=== PATIENT | female | born 2000 | race Caucasian/White ===

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

== ENCOUNTER 2021-11-12 23:12 | Emergency (ER) | payer MEDICAID, OTHER ==
[~2021-11-12] VITALS: Ht 149.9 cm; Wt 69.4 kg
[2021-11-12 23:27] LABS: BASOPHILS % (AUTO) 0.3 % (0.0-5.0); EOSINOPHILS % (AUTO) 1.7 % (0.0-8.0); HEMATOCRIT 33.1 % (36-48); LYMPHOCYTES % (AUTO) 15.9 % (21.0-51.0); MEAN CORPUSCULAR HEMOGLOBIN 29.1 pg (27.0-33.0); MEAN CORPUSCULAR HGB CONC 35.3 g/dL (32.0-36.0); MEAN CORPUSCULAR VOLUME 82.3 fL (79-99); MONOCYTES % (AUTO) 3.7 % (3.0-13.0); NEUTROPHILS % (AUTO) 77.8 % (40.0-77.0); PLATELET COUNT (AUTO) 256 K/uL (130-400); RED BLOOD CELL COUNT(AUTO) 4.02 MIL/uL (4.00-5.50); RED CELL DISTRIBUTION WIDTH 13.2 % (11.0-15.5); WHITE BLOOD COUNT (AUTO) 14.4 K/uL (4.8-10.8)
[2021-11-12 23:37] LABS: APPEARANCE,URINE CLEAR (CLEAR); BILIRUBIN,URINE NEGATIVE (NEGATIVE); COLOR,URINE LIGHT-YELLOW (YELLOW); GLUCOSE, URINE (UA) NEGATIVE (NEGATIVE); KETONES,URINE 20 mg/dL (NEGATIVE); LEUKOCYTE ESTERASE ,URINE 75 Leu/uL (NEGATIVE); NITRATE,URINE NEGATIVE (NEGATIVE); OCCULT BLOOD,URINE MODERATE (NEGATIVE); PH,URINE 6.5 (5.0-8.0); PROTEIN,URINE 10 mg/dL (NEGATIVE); UROBILINOGEN,URINE 0.2 mg/dL (0.2-1.0)
[2021-11-12 23:41] LABS: BACTERIA,URINE RARE /HPF (None Seen); CALCIUM OXALATE CRYSTALS,UR RARE /LPF (None Seen); MUCUS,URINE RARE LPF (None Seen); RBC,URINE 51-100 /HPF (0-1); SQUAMOUS EPITHELIAL CELL,UR MOD /HPF (0-2)
[2021-11-12 23:43] LABS: CREATININE 0.6 mg/dL (0.5-1.5); POTASSIUM 3.4 mmol/L (3.5-5.1)
[2021-11-12 23:47] LABS: ALBUMIN 3.1 g/dL (3.5-5.0); TOTAL PROTEIN, SERUM 7.2 g/dL (6.0-8.3)
[2021-11-13 00:56] VITALS: BP 108/54
[2021-11-13] MEDS ORDERED: NITROFURANTOIN MONOHYD/M-CRYST 100 MG CAPSULE PO ONE ×2 (01:00)
[2021-11-13] MEDS ORDERED: MACR100 PO (01:01)
== END 2021-11-13 01:15 | disposition home or self-care (01) ==
LOC: EDH 23:12
DX: O23.42 Unspecified infection of urinary tract in pregnancy, second trimester (principal); N39.0 Urinary tract infection, site not specified; Z90.49 Acquired absence of other specified parts of digestive tract; Z3A.18 18 weeks gestation of pregnancy
CPT/HCPCS: 36415; 76805; 80053; 81001; 83690; 85025; 86900; 86901; 87088

== ENCOUNTER 2023-12-13 14:44 | Emergency (ER) | payer MEDICAID ==
[~2023-12-13] VITALS: Ht 149.9 cm; Wt 82.6 kg
[~2023-12-13 14:44] MED LIST: MACR100 PO
--- NOTE | 2023-12-13 15:13 | ERN ---
ED Note History of Present Illness Stated Complaint: SOB X 10 DAYS Chief Complaint: Adult-Asthma Time Seen by MD: 15:04 Dictation: 23-year-old female presents to the ED for evaluation of shortness a breath onset 1 week ago. Patient reports history of bronchitis. EMS states patient was satting 92% on room air upon arrival they administered O2 with albuterol treatment which increased oxygen to 97%. As per EMS patient was seen about [facility] for similar symptoms. Patient denies any history of asthma. Allergies: Coded Allergies: No Known Drug Allergies (Unverified Allergy, Unknown, 11/12/21) Home Meds Active Scripts Nitrofurantoin/Nitrofuran Mac (Macrobid) 100 Mg Cap, 1 CAP PO BID for 7 Days, #14 CAP 0 Refills Prov:AMANDA PENA MD 11/13/21 Past Medical History Past Medical History: No Pertinent History Surgical History: Cholecystectomy Social History: Other LMP: Dec 08, 2023 : 3 Para: 3 Aborts: 0 Review of System Dictation Constitutional: Negative for fever,chills, and weight loss Eyes: Negative for injury, pain,redness, and discharge ENT: Negative for injury,pain or swelling Cardiovascular: Negative for chest pain, palpitations, and edema Respiratory: Positive shortness of breath, negative for cough, and wheezing, Abdomen/GI: Negative for abdominal pain, nausea, vomiting, diarrhea, and constipation Back: Negative for injury and pain : Negative for injury, bleeding and discharge MS/Extremity: Negative for injury and deformity Skin: Negative for rash, and discoloration Neuro: Negative for headache, weakness, numbness, tingling, and seizure Psych: Negative for suicide ideation, homicidal ideation, and hallucinations Initial Vital Sign VS Vital Signs Date Time Temp Pulse Resp B/P (MAP) Pulse Ox O2 Delivery O2 Flow Rate FiO2 12/13/23 14:55 98.2 98 22 116/91 92 Room Air* 0 21 Physical Exam Dictation General: awake, alert Head/Face: Normocephalic, atraumatic Eyes: PERRL, EOMI, vision at baseline ENT: oral cavity clear, TMs clear, no signs of infection Neck: Trachea midline, supple, no nuchal rigidity Cardiovascular: RRR, normal S1/S2, No MRGs, no JVD Respiratory: moderate respiratory distress, wheezing, diminished bilateral breath sounds Abdomen: Soft, non-tender, non-distended, normal bowel sounds, no guarding or rebound. Skin: Warm, dry, normal turgor, no rash MS/Extremity: Pulses equal, no cyanosis, neurovascular intact, FROM Neuro: COAx4, GCS 15, strength 5/5, CN 2-12 intact, normal cerebellar exam, normal gait, Psych: Normal behavior, mood, and affect normal Results (Laboratory/Radiology) Laboratory/Radiology Laboratory Tests Test 12/13/23 15:13 12/13/23 15:19 Influenza Type A Antigen Negative For Type A Influenza Type B Antigen Negative For Type B SARS-CoV-2, RNA, NAAT NEGATIVE SARS CoV-2 White Blood Count 14.0 K/uL (4.8-10.8) H Red Blood Count 4.82 MIL/uL (4.00-5.50) Hemoglobin 13.6 g/dL (12.0-16.0) Hematocrit 40.1 % (36-48) Mean Corpuscular Volume 83.2 fL (79-99) Mean Corpuscular Hemoglobin 28.2 pg (27.0-33.0) Mean Corpuscular Hemoglobin Concent 33.9 g/dL (32.0-36.0) Red Cell Distribution Width 14.9 % (11.0-15.5) Platelet Count 345 K/uL (130-400) Mean Platelet Volume 10.7 fL (7.5-10.5) H Immature Granulocyte % (Auto) 0.7 % (0-1) Neutrophils (%) (Auto) 58.9 % (40.0-77.0) Lymphocytes (%) (Auto) 30.2 % (21.0-51.0) Monocytes (%) (Auto) 4.9 % (3.0-13.0) Eosinophils (%) (Auto) 4.7 % (0.0-8.0) Basophils (%) (Auto) 0.6 % (0.0-5.0) Neutrophils # (Auto) 8.2 K/uL (1.8-7.7) H Lymphocytes # (Auto) 4.2 K/uL (1.0-4.8) Monocytes # (Auto) 0.7 K/uL (0.1-1.0) Eosinophils # (Auto) 0.65 K/uL (0.00-0.70) Basophils # (Auto) 0.08 K/uL (0.00-0.20) Absolute Immature Granulocyte (auto 0.10 K/uL (0-1) Nucleated Red Blood Cells 0.0 % (0.0-0.19) Sodium Level 136 mmol/L (136-145) Potassium Level 3.7 mmol/L (3.5-5.1) Chloride Level 100 mmol/L (101-111) L Carbon Dioxide Level 28 mmol/L (21-32) Blood Urea Nitrogen 15 mg/dL (7-18) Creatinine 0.9 mg/dL (0.5-1.0) Glomerular Filtration Rate Calc 91 mL/min (>90) Random Glucose 99 mg/dL (70-105) Lactic Acid Level 1.8 mmol/L (0.8-2.5) Total Calcium 9.3 mg/dL (8.5-10.1) Troponin I High Sensitivity < 4 ng/L (4-50) L Serum Test, Qualitative NEGATIVE (NEGATIVE) Labs Reviewed?: Yes X-RAY Comment: X-ray independently visualized by me REASON: SOB, WHEEZING TO ALL LOBES ORDERING PHYSICIAN: LAURO TALLEY PROCEDURE: CXR1VW - CHEST 1VW CHEST 1VW HISTORY: Shortness of breath COMPARISON: None FINDINGS: A frontal projection of the chest was obtained. No acute pulmonary infiltrates is seen. The heart is normal in size. Prominent interstitial markings are seen. No evidence of aortic calcification is seen. IMPRESSION: 1. No acute pulmonary infiltrate is seen. DICTATED BY: TERRY HUFFMAN MD DATE: 12/13/23 1516 ED Course ED Course Orders Procedure Category Date Status Time Vital Signs Per CPOE 12/13/23 Transmitted Routine 14:57 Pulse Ox(Continuous) RT 12/13/23 Transmitted 14:57 Oxygen By Nc/Pulse Ox CPOE 12/13/23 Transmitted 14:57 Saline Lock Iv CPOE 12/13/23 Transmitted 14:57 Chest 1vw RAD 12/13/23 Resulted 14:57 Ipratropium/Albuterol PHA 12/13/23 Complete Neb (Duoneb) 15:00 Cbc W Manual Diff LAB 12/13/23 Logged 14:57 Basic Metabolic Panel LAB 12/13/23 Complete 14:57 Blood Cult MARYANN 12/13/23 In Process 14:57 Lactic Acid LAB 12/13/23 Complete 14:57 Cbc With Differential LAB 12/13/23 Complete 15:00 Testing, LAB 12/13/23 Complete Serum Hcg 15:00 Covid Rna Naat LAB 12/13/23 Complete 15:00 Influenza Type A & B, LAB 12/13/23 Complete Rapid 15:00 Troponin I High LAB 12/13/23 Complete Sensitivity 15:00 Magnesium 2gm Premix PHA 12/13/23 Complete 50ml (Magnesium 2gm 15:04 Methylprednisolone PHA 12/13/23 Complete Succ 125mg (Solu-Medr 15:30 0.9%Nacl 1000ml (Ns PHA 12/13/23 Complete 1000ml) 15:30 Ipratropium/Albuterol PHA 12/13/23 Complete Neb (Duoneb) 17:30 Current Medications Medications (Trade) Dose Ordered Sig/Bethany Route PRN Reason Start Time Stop Time Status Last Admin Dose Admin Albuterol (DUOneb) 1 UDVIAL ONCE ONCE IH 12/13/23 15:00 12/13/23 15:01 DC 12/13/23 15:16 Albuterol (DUOneb) 1 UDVIAL ONCE ONCE IH 12/13/23 17:30 12/13/23 17:31 DC 12/13/23 18:36 Magnesium Sulfate 50 ml @ 0 mls/hr PROTOCOL STAT IV 12/13/23 15:04 12/13/23 15:06 DC 12/13/23 15:21 Methylprednisolone Sodium Succinate (Solu-medROL 125MG) 125 mg ONCE ONCE IVP 12/13/23 15:30 12/13/23 15:31 DC 12/13/23 15:30 Sodium Chloride 1,000 ml @ 0 mls/hr ONCE ONCE IV 12/13/23 15:30 12/13/23 15:31 DC 12/13/23 15:20 Vital Signs Date Time Temp Pulse Resp B/P (MAP) Pulse Ox O2 Delivery O2 Flow Rate FiO2 12/13/23 18:37 81 22 12/13/23 16:59 78 18 96 Room Air* 0 21 12/13/23 15:16 89 24 12/13/23 14:55 98.2 98 22 116/91 92 Room Air* 0 21 Medical Decision Making MDM MDM: Differential diagnosis: Shortness a breath, bronchitis, asthma 1750-patient is feeling better and is requesting to go home, will order another nebulizer treatment before discharging. Previous outside records reviewed: Old ER visits. Need for emergency major/minor surgery: No Patient's prior external medical records from other ER visits were reviewed by me as indicated. Prior testing and results from previous visits were reviewed. Prior tests were taken into account with medical decision making and resource utilization, independent historian/historians were used to obtain complete medical history. I independently interpreted the test that were performed, results were reviewed by me and considered findings on radiology if ordered. Medical management and examination interpretation discussions were had by me with other qualified healthcare professionals as indicated for the patient's care. Patient offered admission seven some difficulty breathing however patient refused and wants to go home instead repeat vital signs are stable symptoms have improved minimal wheezing now however patient does have cough and still feels a little short of breath. Advised to return if worse in any way and agrees with current treatment plan prescriptions given. DX & DISP Disposition: Discharge Departure Impression: Primary Impression: Acute bronchitis with wheezing Condition: Stable Scripts Albuterol Sulfate (Ventolin Hfa/Proventil Hfa/Proair Hfa) 90 Mcg Puff 1-2 PUFF IH Q4H PRN for SHORTNESS OF BREATH for 5 Days, #1 INH 0 Refills PHARMACY TO DISPENSE 1 INHALER FOR USE Prov: THOMAS ROMERO MD 12/13/23 Azithromycin (Azithromycin) 250 Mg Tablet 250 MG PO AD for cough for 5 Days, #6 TAB Prov: THOMAS ROMERO MD 12/13/23 Referrals: SELF,REFERRAL (PCP) I have reviewed, & agreed with my scribe's, documentation. (Entered by Clarisa Frausto, acting as a scribe for Dr. Romero) I personally scribed for THOMAS ROMERO MD ([email or web address]) on 12/13/23 at 15:12. Electronically submitted by Clarias Frausto ([email or web address]). I personally scribed for THOMAS ROMERO MD ([email or web address]) on 12/13/23 at 18:07. Electronically submitted by Clarisa Frausto ([email or web address]). I personally scribed for THOMAS ROMERO MD ([email or web address]) on 12/13/23 at 18:54. Electronically submitted by Clarisa Frausto ([email or web address]). THOMAS ROMERO MD Dec 13, 2023 15:12
[2023-12-13 15:16] VITALS: PULSE 89; RESP 24
[2023-12-13] MEDS: IpraTROPium/alBUTERol SULFATE 3 ML SOLUTION IH ONE ×2 (15:16→18:36)
--- NOTE | 2023-12-13 15:18 | HMCIMG ---
CHEST 1VW HISTORY: Shortness of breath COMPARISON: None FINDINGS: A frontal projection of the chest was obtained. No acute pulmonary infiltrates is seen. The heart is normal in size. Prominent interstitial markings are seen. No evidence of aortic calcification is seen. IMPRESSION: 1. No acute pulmonary infiltrate is seen.
[2023-12-13] MEDS: 0.9%NACL 1000ML 1,000 ML IV ONE (15:20)
[2023-12-13] MEDS: MAGNESIUM 2GM PREMIX 50ML 50 ML IV STA (15:21)
[2023-12-13] MEDS: Solu-medROL 125MG VIAL IVP ONE (15:30)
[2023-12-13 15:35] LABS: BASOPHILS # (AUTO) 0.08 K/uL (0.00-0.20); BASOPHILS % (AUTO) 0.6 % (0.0-5.0); EOSINOPHILS # (AUTO) 0.65 K/uL (0.00-0.70); EOSINOPHILS % (AUTO) 4.7 % (0.0-8.0); HEMATOCRIT 40.1 % (36-48); LYMPHOCYTES # (AUTO) 4.2 K/uL (1.0-4.8); LYMPHOCYTES % (AUTO) 30.2 % (21.0-51.0); MEAN CORPUSCULAR HEMOGLOBIN 28.2 pg (27.0-33.0); MEAN CORPUSCULAR HGB CONC 33.9 g/dL (32.0-36.0); MEAN CORPUSCULAR VOLUME 83.2 fL (79-99); MONOCYTES # (AUTO) 0.7 K/uL (0.1-1.0); MONOCYTES % (AUTO) 4.9 % (3.0-13.0); NEUTROPHILS # (AUTO) 8.2 K/uL (1.8-7.7); NEUTROPHILS % (AUTO) 58.9 % (40.0-77.0); PLATELET COUNT (AUTO) 345 K/uL (130-400); RED BLOOD CELL COUNT(AUTO) 4.82 MIL/uL (4.00-5.50); RED CELL DISTRIBUTION WIDTH 14.9 % (11.0-15.5)
[2023-12-13 15:47] LABS: SARS-CoV-2, RNA, NAAT NEGATIVE SARS CoV-2 (NEGATIVE)
[2023-12-13 15:50] LABS: INFLUENZA TYPE A Negative For Type A (NEGATIVE); INFLUENZA TYPE B Negative For Type B (NEGATIVE)
[2023-12-13 15:52] LABS: CREATININE 0.9 mg/dL (0.5-1.0); POTASSIUM 3.7 mmol/L (3.5-5.1)
[2023-12-13 18:37] VITALS: PULSE 81; RESP 22
[2023-12-13] MEDS ORDERED: AZIT250T9 PO (19:06)
[2023-12-13] MEDS ORDERED: ALBUHFA IH (19:06)
[2023-12-13 19:30] VITALS: BP 124/88; PULSE 82; RESP 16; TEMP 98.2; O2SAT 97
== END 2023-12-13 19:37 | disposition home or self-care (01) ==
LOC: EDH 14:44
DX: J20.9 Acute bronchitis, unspecified (principal); Z20.822 Contact with and (suspected) exposure to COVID-19; Z90.49 Acquired absence of other specified parts of digestive tract
CPT/HCPCS: 99285; 96365; 71045; 87635; 96366; 96375; 84484; 80048; 84703; 85025; 87040; 87804 ×2; 83605; 36415; 94640; J3475; J7030; J2919

== ENCOUNTER 2024-04-15 14:00 | Emergency (ER) | payer MEDICAID ==
[~2024-04-15] VITALS: Ht 149.9 cm; Wt 83.5 kg
[~2024-04-15 14:00] MED LIST changes: +ALBUHFA IH; +AZIT250T9 PO
[2024-04-15 15:39] LABS: CREATININE 0.6 mg/dL (0.5-1.0); POTASSIUM 4.1 mmol/L (3.5-5.1)
[2024-04-15 15:44] LABS: BASOPHILS # (AUTO) 0.07 K/uL (0.00-0.20); BASOPHILS % (AUTO) 0.5 % (0.0-5.0); EOSINOPHILS # (AUTO) 0.35 K/uL (0.00-0.70); EOSINOPHILS % (AUTO) 2.5 % (0.0-8.0); HEMATOCRIT 39.2 % (36-48); IMMATURE GRANULOCYTE ABSOLUTE 0.06 K/uL (0-1); LYMPHOCYTES # (AUTO) 2.8 K/uL (1.0-4.8); LYMPHOCYTES % (AUTO) 20.2 % (21.0-51.0); MEAN CORPUSCULAR HEMOGLOBIN 26.8 pg (27.0-33.0); MEAN CORPUSCULAR HGB CONC 32.7 g/dL (32.0-36.0); MEAN CORPUSCULAR VOLUME 82.2 fL (79-99); MONOCYTES # (AUTO) 0.7 K/uL (0.1-1.0); MONOCYTES % (AUTO) 4.7 % (3.0-13.0); NEUTROPHILS # (AUTO) 10.1 K/uL (1.8-7.7); NEUTROPHILS % (AUTO) 71.7 % (40.0-77.0); PLATELET COUNT (AUTO) 330 K/uL (130-400); RED BLOOD CELL COUNT(AUTO) 4.77 MIL/uL (4.00-5.50); RED CELL DISTRIBUTION WIDTH 13.2 % (11.0-15.5); WHITE BLOOD COUNT (AUTO) 14.1 K/uL (4.8-10.8)
[2024-04-15 15:48] LABS: ALBUMIN 3.5 g/dL (3.5-5.0); BILIRUBIN,DIRECT 0.1 mg/dL (0.0-0.3); BILIRUBIN,TOTAL 0.2 mg/dL (0.2-1.0); TOTAL PROTEIN, SERUM 7.3 g/dL (6.0-8.3)
[2024-04-15] MEDS: ondanSETRON ODT 4MG TAB SL ONE (16:22)
[2024-04-15] MEDS: morPHINE 2 MG SYG IM ONE (16:24)
[2024-04-15 16:27] LABS: APPEARANCE,URINE CLOUDY (CLEAR); BILIRUBIN,URINE NEGATIVE (NEGATIVE); COLOR,URINE LIGHT-YELLOW (YELLOW); GLUCOSE, URINE (UA) NEGATIVE (NEGATIVE); KETONES,URINE NEGATIVE (NEGATIVE); LEUKOCYTE ESTERASE ,URINE 75 Leu/uL (NEGATIVE); NITRATE,URINE NEGATIVE (NEGATIVE); OCCULT BLOOD,URINE NEGATIVE (NEGATIVE); PROTEIN,URINE NEGATIVE (NEGATIVE); UROBILINOGEN,URINE 0.2 mg/dL (0.2-1.0)
[2024-04-15 16:39] LABS: HCG,QUALITATIVE URINE NEGATIVE (NEGATIVE)
[2024-04-15 16:41] LABS: MUCUS,URINE RARE LPF (None Seen); SQUAMOUS EPITHELIAL CELL,UR MANY /HPF (0-2)
--- NOTE | 2024-04-15 16:59 | ERN ---
ED Note History of Present Illness Stated Complaint: ABDOMINAL PAIN Chief Complaint: Abdominal Pain Time Seen by MD: 14:03 Dictation: 23-year-old female presents to the ED for evaluation of abdominal pain onset 1 day ago. Patient reports nausea and diarrhea, but denies any other associated symptoms at this time. Allergies: Coded Allergies: No Known Drug Allergies (Unverified Allergy, Unknown, 11/12/21) Home Meds Active Scripts Albuterol Sulfate (Ventolin Hfa/Proventil Hfa/Proair Hfa) 90 Mcg Puff, 1-2 PUFF IH Q4H PRN for SHORTNESS OF BREATH for 5 Days, #1 INH 0 Refills PHARMACY TO DISPENSE 1 INHALER FOR USE Prov:THOMAS ROMERO MD 12/13/23 Azithromycin (Azithromycin) 250 Mg Tablet, 250 MG PO AD for cough for 5 Days, #6 TAB Prov:THOMAS ROMERO MD 12/13/23 Nitrofurantoin/Nitrofuran Mac (Macrobid) 100 Mg Cap, 1 CAP PO BID for 7 Days, #14 CAP 0 Refills Prov:AMANDA PENA MD 11/13/21 Past Medical History Past Medical History: No Pertinent History Surgical History: Tonsillectomy, Cholecystectomy Social History: Other : 3 Para: 3 Aborts: 0 Review of System Dictation Constitutional: Negative for fever,chills, and weight loss Eyes: Negative for injury, pain,redness, and discharge ENT: Negative for injury,pain or swelling Cardiovascular: Negative for chest pain, palpitations, and edema Respiratory: Negative for shortness of breath, cough, and wheezing, Abdomen/GI: Positive for abdominal pain, nausea and diarrhea Back: Negative for injury and pain : Negative for injury, bleeding and discharge MS/Extremity: Negative for injury and deformity Skin: Negative for rash, and discoloration Neuro: Negative for headache, weakness, numbness, tingling, and seizure Psych: Negative for suicide ideation, homicidal ideation, and hallucinations Initial Vital Sign VS Vital Signs Date Time Temp Pulse Resp B/P (MAP) Pulse Ox O2 Delivery O2 Flow Rate FiO2 04/15/24 14:10 98.1 94 20 133/71 99 Room Air 0 Physical Exam Dictation General: awake, alert, NAD Head/Face: Normocephalic, atraumatic Eyes: PERRL, EOMI, vision at baseline ENT: oral cavity clear, TMs clear, no signs of infection Neck: Trachea midline, supple, no nuchal rigidity Cardiovascular: RRR, normal S1/S2, No MRGs, no JVD Respiratory: CTAB, no respiratory distress, No rales or wheezes Abdomen: Soft, non-tender, non-distended, normal bowel sounds, no guarding or rebound. Skin: Warm, dry, normal turgor, no rash MS/Extremity: Pulses equal, no cyanosis, neurovascular intact, FROM Neuro: COAx4, GCS 15, strength 5/5, CN 2-12 intact, normal cerebellar exam, normal gait, Psych: Normal behavior, mood, and affect normal Results (Laboratory/Radiology) Laboratory/Radiology Laboratory Tests Test 04/15/24 15:02 04/15/24 15:20 Urine Color LIGHT-YELLOW (YELLOW) Urine Appearance CLOUDY (CLEAR) H Urine pH 6.0 (5.0-8.0) Urine Specific Marissa 1.020 (1.001-1.031) Urine Protein NEGATIVE mg/dL (NEGATIVE) Urine Glucose (UA) NEGATIVE mg/dL (NEGATIVE) Urine Ketones NEGATIVE mg/dL (NEGATIVE) Urine Occult Blood NEGATIVE (NEGATIVE) Urine Nitrate NEGATIVE (NEGATIVE) Urine Bilirubin NEGATIVE mg/dL (NEGATIVE) Urine Urobilinogen 0.2 mg/dL (0.2-1.0) Urine Leukocyte Esterase 75 Almita/uL (NEGATIVE) H Urine RBC 2-5 /HPF (0-1) H Urine WBC 2-5 /HPF (0-1) H Urine Squamous Epithelial Cells MANY /HPF (0-2) Urine Bacteria None /HPF (None Seen) Urine HCG, Qualitative NEGATIVE (NEGATIVE) White Blood Count 14.1 K/uL (4.8-10.8) H Red Blood Count 4.77 MIL/uL (4.00-5.50) Hemoglobin 12.8 g/dL (12.0-16.0) Hematocrit 39.2 % (36-48) Mean Corpuscular Volume 82.2 fL (79-99) Mean Corpuscular Hemoglobin 26.8 pg (27.0-33.0) L Mean Corpuscular Hemoglobin Concent 32.7 g/dL (32.0-36.0) Red Cell Distribution Width 13.2 % (11.0-15.5) Platelet Count 330 K/uL (130-400) Mean Platelet Volume 11.1 fL (7.5-10.5) H Immature Granulocyte % (Auto) 0.4 % (0-1) Neutrophils (%) (Auto) 71.7 % (40.0-77.0) Lymphocytes (%) (Auto) 20.2 % (21.0-51.0) L Monocytes (%) (Auto) 4.7 % (3.0-13.0) Eosinophils (%) (Auto) 2.5 % (0.0-8.0) Basophils (%) (Auto) 0.5 % (0.0-5.0) Neutrophils # (Auto) 10.1 K/uL (1.8-7.7) H Lymphocytes # (Auto) 2.8 K/uL (1.0-4.8) Monocytes # (Auto) 0.7 K/uL (0.1-1.0) Eosinophils # (Auto) 0.35 K/uL (0.00-0.70) Basophils # (Auto) 0.07 K/uL (0.00-0.20) Absolute Immature Granulocyte (auto 0.06 K/uL (0-1) Nucleated Red Blood Cells 0.0 % (0.0-0.19) Sodium Level 138 mmol/L (136-145) Potassium Level 4.1 mmol/L (3.5-5.1) Chloride Level 102 mmol/L (101-111) Carbon Dioxide Level 30 mmol/L (21-32) Blood Urea Nitrogen 11 mg/dL (7-18) Creatinine 0.6 mg/dL (0.5-1.0) Glomerular Filtration Rate Calc 128 mL/min (>90) Random Glucose 92 mg/dL (70-105) Total Calcium 9.3 mg/dL (8.5-10.1) Total Bilirubin 0.2 mg/dL (0.2-1.0) Direct Bilirubin 0.1 mg/dL (0.0-0.3) Aspartate Amino Transf (AST/SGOT) 12 U/L (10-37) Alanine Aminotransferase (ALT/SGPT) 23 U/L (12-78) Alkaline Phosphatase 115 U/L (50-136) Total Protein 7.3 g/dL (6.0-8.3) Albumin 3.5 g/dL (3.5-5.0) Labs Reviewed?: Yes ED Course ED Course Orders Procedure Category Date Status Time Cbc With Differential LAB 04/15/24 Complete 14:35 Basic Metabolic Panel LAB 04/15/24 Complete 14:35 Hepatic Function Panel LAB 04/15/24 Complete 14:35 Urinalysis LAB 04/15/24 Complete W/Microscopic 14:35 ,Urine Test LAB 04/15/24 Complete 14:35 Ondansetron Odt 4mg PHA 04/15/24 Complete Tab (Zofran 4mg Odt) 16:30 Morphine 2mg Syg PHA 04/15/24 Complete (Morphine 2mg Syg) 16:30 Culture Urine MARYANN 04/15/24 In Process 16:37 Ketorolac PHA 04/15/24 Complete Tromethamine 15mg/Ml 17:30 Ct Abdomen/Pelvis W/O CT 04/15/24 Resulted Contrast 17:18 Current Medications Medications (Trade) Dose Ordered Sig/Bethany Route PRN Reason Start Time Stop Time Status Last Admin Dose Admin Ketorolac Tromethamine (toRADol) 15 mg ONCE ONCE IM 04/15/24 17:30 04/15/24 17:42 DC Morphine Sulfate (morPHINE 2MG SYG) 2 mg ONCE ONCE IM 04/15/24 16:30 04/15/24 16:31 DC 04/15/24 16:24 Ondansetron HCl (zoFRAN 4MG ODT) 4 mg ONCE ONCE SL 04/15/24 16:30 04/15/24 16:31 DC 04/15/24 16:22 Vital Signs Date Time Temp Pulse Resp B/P (MAP) Pulse Ox O2 Delivery O2 Flow Rate FiO2 04/15/24 14:10 98.1 94 20 133/71 99 Room Air 0 Medical Decision Making MDM MDM: Differential diagnosis: Abdominal pain, diarrhea, gastroenteritis Risk of complication and/or morbidity or mortality of patient management: None Medications-Per medication reconciliation Need for hospitalization: Patient does meet criteria for hospitalization. Need for emergency major/minor surgery: No There are no social concerns with this patient. Prescription drug management Prescriptions will include symptomatic care I independently interpreted the test that were performed, results were reviewed by me and considered findings on radiology if ordered. Medical management and examination interpretation discussions were had by me with other qualified healthcare professionals as indicated for the patient's care. DX & DISP Disposition: Discharge Departure Impression: Primary Impression: Suprapubic pain Additional Impression: Nephrolithiasis Condition: Stable Additional Instructions: Discharge home. Rest. Follow up with primary care DrAnabell in 24 hours. Return to the ER for any acute changes or worsening symptoms. If any medications were prescribed take as directed. Okay to continue home medications unless otherwise discussed during your visit in the emergency room today. Patient was also advised to follow-up with primary care physician in 1 to 2 days for continued monitoring. Referrals: NONE (PCP) I participated in the following activities of this patient's care: For this patient encounter, I reviewed the PA or SUBSTANCE ABUSE CLINICIAN documentation, treatment plan, and medical decision making. I did not have [id number] time with this patient. I will sign as the reviewing DrAnabell And agree with the treatment plan and disposition. I personally scribed for VENICE BALL ([email or web address]) on 04/15/24 at 16:59. Electronically submitted by Clarisa Frausto ([email or web address]). VENICE BALL Apr 15, 2024 16:59
[2024-04-15] MEDS ORDERED: ketOROlac 15MG/ML VIAL (15MG/ML) IM ONE (17:30)
--- NOTE | 2024-04-15 17:51 | HMCIMG ---
CT ABDOMEN WITHOUT CONTRAST. CT PELVIS WITHOUT CONTRAST. INDICATION: Right flank pain TECHNIQUE: Routine transaxial imaging using 5 mm slice thickness through the abdomen and pelvis without the administration of IV contrast. Thin slice reconstructions are also provided. Coronal and sagittal reformatted images acquired for interpretation. CT was performed with one or more of the following dose reduction techniques: Automated exposure control, adjustment of the mA and/or kV according to patient size, or use of iterative reconstruction technique. COMPARISON: None FINDINGS: ON NONCONTRAST IMAGING: ABDOMEN: Heart size is normal. Visible lung bases are clear. A few miniscule nonobstructing calculi along the medullary portions of both kidneys, largest on the right at the midportion measuring up to 3 mm in largest on the left at the midportion measuring up to 2 mm. The liver is normal in size and smooth in contour without biliary duct dilation. The spleen is normal in size and attenuation. Gallbladder is absent. The pancreas appears normal without pancreatic duct dilation. The adrenal glands appear normal. No significant abdominal, retrocrural or retroperitoneal adenopathy noted. No evidence for intra-abdominal free air or organized fluid collection. No aortic aneurysmal dilation identified. PELVIS: No abnormal calcifications within the urinary bladder or distal ureters. No evidence for free air or organized pelvic fluid collection. No significant pelvic adenopathy detected. A few diverticula along the distal colon. Terminal ileum appears unremarkable. The retrocecal appendix appears normal. Visible osseous structures are intact. IMPRESSION: Nonobstructing bilateral nephrolithiasis. Mild distal colonic diverticulosis.
[2024-04-15 18:45] VITALS: BP 128/64; PULSE 88; RESP 20; TEMP 98; O2SAT 99
== END 2024-04-15 18:47 | disposition home or self-care (01) ==
LOC: EDH 14:00
DX: R10.2 Pelvic and perineal pain (principal); N20.0 Calculus of kidney; Z90.49 Acquired absence of other specified parts of digestive tract; Z90.89 Acquired absence of other organs
CPT/HCPCS: 99285; 74176; 80076; 80048; 85025; 87086; 81001; 81025; 36415; 96372; J2270